=== PATIENT | male | born 1950 | race Two or more races ===

== ENCOUNTER 2017-08-21 08:25 | Day surgery (SDC) | payer OTHER ==
[2017-08-21] VITALS (12 sets, daily range): BP systolic 107–137; BP diastolic 73–98
[~2017-08-21] VITALS: Ht 172.7 cm; Wt 59.0 kg
--- NOTE | 2017-08-21 07:10 | Anethesia Preoperative Eval ---
Anesthesia Pre-op PMH/ROS General Date of Evaluation: Aug 21, 2017 Time of Evaluation: 07:10 Anesthesiologist: domitila ASA Score: ASA 3 Mallampati Score Class I : Soft palate, uvula, fauces, pillars visible Class II: Soft palate, uvula, fauces visible Class III: Soft palate, base of uvula visible Class IV: Only hard plate visible Mallampati Classification: Class II Surgeon: mica Diagnosis: gerd Surgical Procedure: egd Anesthesia History: none Social History: smoking - former smoker Family History: no anesthesia problems Allergies: Coded Allergies: No Known Allergies (Unverified , 08/20/17) Medications: see eMAR Past Medical History Cardiovascular: Reports: HTN, other - hyperlipidemia Pulmonary: Reports: asthma Gastrointestinal/Genitourinary: Reports: GERD Neurologic/Psychiatric: Reports: depression/anxiety Endocrine: Reports: DM HEENT: Reports: cataract (L), cataract (R) PSxH Narrative: cervical spine surgery, right arm surgery Anesthesia Pre-op Phys. Exam Physician Exam Last Vital Signs Date Time Temp Pulse Resp B/P (MAP) Pulse Ox O2 Delivery O2 Flow Rate FiO2 08/21/17 09:07 98.3 109 18 137/98 99 Room Air 98.3 Constitutional: NAD Neurologic: CN 2-12 intact Cardiovascular: RRR Airway Exam Mallampati Score: Class II MO: full Neck: well healed scar TMD: 2fb ROM: limited Teeth: missing Dentures: upper, lower Anesthesia Pre-op A/P Labs Accucheck 198 Risk Assessment & Plan Assessment: asa3 Plan: mac Status Change Before Surgery: No Pre-Antibiotics Drug: CLAUDIA Dueñas Aug 21, 2017 07:10
[~2017-08-21 08:25] MED LIST: Atropine Inj 1mg/10ml Syr IV PRN; DiphenhydrAMINE 50mg/ml Inj IVP PRN; LR 1000ml 1,000 ML IVLG SCH; Midazolam 2mg/2ml Inj IVP PRN; fentaNYL 100 mcg/2 mL IV PRN
[2017-08-21] MEDS ORDERED: QUETIAPINE FUM300 M1 PO (09:15)
[2017-08-21] MEDS ORDERED: GABAPENTIN300 MG ORAL (09:15)
[2017-08-21] MEDS ORDERED: METFORMIN HCL1000 M1 ORAL (09:15)
[2017-08-21] MEDS ORDERED: NORCO 7.5/3251 EA ORAL (09:15)
[2017-08-21] MEDS ORDERED: PROAIR HFA8.5 GM INH (09:15)
[2017-08-21] MEDS ORDERED: OMEPRAZOLE20 M3 ORAL (09:15)
[2017-08-21] MEDS ORDERED: GLIPIZIDE5 MG ORAL (09:15)
[2017-08-21] MEDS ORDERED: LOSARTAN POTASS50 MG ORAL (09:15)
[2017-08-21] MEDS ORDERED: AMLODIPINE BESY10 MG ORAL (09:15)
[2017-08-21] MEDS ORDERED: DULERA 100 MCG/13 GM INH (09:15)
[2017-08-21] MEDS ORDERED: CYMBALTA60 MG ORAL (09:15)
--- NOTE | 2017-08-21 10:15 | Short Stay Surgery H&P ---
History of Present Illness History of Present Illness Chief Complaint Dysphagia/GERDs abdominal pains. HPI Brian Pearl is a 66 year old male who was admitted on for GERD/dysphagia Patient History Allergies: Coded Allergies: No Known Allergies (Unverified , 08/20/17) PAST MEDICAL HISTORY: (1) Diabetes (2) Hyperlipidemia (3) Hypertension Past Surgeries: (1) H/O cervical spine surgery (2) History of surgery on arm Social History: Medication History Scheduled Albuterol Sulfate* (Proair Hfa*), 2 PUFFS INH Q6H, (Reported) Amlodipine Besylate* (Amlodipine Besylate*), 10 MG ORAL DAILY, (Reported) Duloxetine Hcl* (Cymbalta*), 60 MG ORAL BID, (Reported) Gabapentin* (Gabapentin*), 300 MG ORAL THREE TIMES A DAY, (Reported) Glipizide* (Glipizide*), 5 MG ORAL BIDAC, (Reported) Losartan Potassium* (Losartan Potassium*), 50 MG ORAL BID, (Reported) Metformin Hcl* (Metformin Hcl*), 1,000 MG ORAL BID, (Reported) Mometasone/Formoterol (Dulera 100 Mcg/5 Mcg Inhaler), 2 PUFFS INH EVERY 12 HOURS , (Reported) Omeprazole (Omeprazole), 20 MG ORAL BID, (Reported) Quetiapine Fumarate (Quetiapine Fumarate Er), 300 MG PO HS, (Reported) Scheduled PRN Hydrocodone/Acetaminophen (Hydrocodon-Acetaminoph 7.5-325), 1 TAB ORAL Q4H PRN for For Pain, (Reported) Review of Systems Cardiovascular: Reports: no symptoms Respiratory: Reports: no symptoms Skeletal: Reports: trauma Gastrointestinal: Reports: gastro esophageal reflux disease Genitourinary: Reports: no symptoms Neurologic: Reports: no symptoms Endocrine: Reports: diabetes - type 2 Hematologic: Reports: no symptoms Physical Exam Vital Signs Last Vital Signs Date Time Temp Pulse Resp B/P (MAP) Pulse Ox O2 Delivery O2 Flow Rate FiO2 08/21/17 09:07 98.3 109 18 137/98 99 Room Air 98.3 Skin: normal HENT: normal Heart: normal Lungs: normal Abdomen: abnormal Extremities: normal Genitourinary: normal Plan Plan of Care Upper GI endoscopy and biospy Preop Interventions None. Summary of Findings see the report Final Diagnosis: Attestation Are the patient's medical conditions optimized for surgery? Attestation Response: yes BRANDON ROBERSON Aug 21, 2017 10:15
--- NOTE | 2017-08-21 10:15 | Pre-Procedure Note/Attestation ---
Pre-Procedure Note/Attestation Complete Prior to Procedure Planned Procedure: left Procedure Narrative: Examination of the upper GI tract via endoscopy Indications for Procedure Pre-Operative Diagnosis: R/O Peptic Ulcer/Gastritis Attestation I attest that I discussed the nature of the procedure; its benefits; risks and complications; and alternatives (and the risks and benefits of such alternatives ), prior to the procedure, with the patient (or the patient's legal community health representative). I attest that, if there was a reasonable possibility of needing a blood transfusion, the patient (or the patient's legal community health representative) was given the [facility] standardized written summary, pursuant to the Hari Eunice Blood Safety Act ([place] Health and Safety Code # 1645, as amended). I attest that I re-evaluated the patient just prior to the surgery and that there has been no change in the patient's H&P, except as documented below: DA,SAID Aug 21, 2017 10:15
[2017-08-21] MEDS ORDERED: Propofol 200mg/20ml IV ONE (10:30)
[2017-08-21] MEDS ORDERED: Lidocaine 1% MPF 10mg/ml 5ml ONE (10:30)
[2017-08-21] MEDS ORDERED: LR 1000ml ONE (10:30)
[2017-08-21] MEDS ORDERED: Midazolam 2mg/2ml Inj ONE (10:30)
--- NOTE | 2017-08-21 10:52 | Endoscopy Procedure Note ---
Endoscopy Procedure Note General Indication for Procedure: abdominal pains and dysphagia Procedures Performed: EGD - Small Hiatal Hernia. Mild duodenitis with couple superficial erosions biopsied. biopsy bwas also done per random from gastric body. Specimen: yes Pt Tolerated Procedure Well: Yes Estimated Blood Loss: none Anesthesia Anesthesiologist: Dr. Brown Anesthesia: moderate sedation Medications Medication Given: see anesthesia record Inserted Devices Implant(s) used?: No Quality Was there any complications?: No GI Core Measures 50 yrs or older w/o bx or poly: Not Applicable 10yrs. F/U not recommended: Not Applicable If not recommended, why?: Med reason:<3 yrs.: System Reason:<3 yrs.: BRANDON ROBERSON Aug 21, 2017 10:52
--- NOTE | 2017-08-21 10:53 | Discharge Instructions ---
Discharge Instructions Discharge Instructions Follow up with: Visit the doctor in office after two weeks. For Congestive Heart Failure Reminder Report to your physician any weight gain of 5 pounds or more in one week. BRANDON ROBERSON Aug 21, 2017 10:53
--- NOTE | 2017-08-21 11:15 | Immediate Post-Op Evaluation ---
Immediate Post-Op Evalulation Immediate Post-Op Evalulation Procedure: egd Date of Evaluation: Aug 21, 2017 Time of Evaluation: 11:07 IV Fluids: 550ml lr Blood Products: none Estimated Blood Loss: negligible Blood Pressure Systolic: 107 Blood Pressure Diastolic: 73 Pulse Rate: 90 Respiratory Rate: 18 O2 Sat by Pulse Oximetry: 100 Temperature (Fahrenheit): 97.5 Pain Score (1-10): 0 Nausea: No Vomiting: No Complications none Patient Status: awake, reacts, patent Hydration Status: adequate Drug: CLAUDIA Dueñas Aug 21, 2017 11:15
--- NOTE | 2017-08-21 11:16 | 48 Hour Post Anesthesia Eval ---
Post Anesthesia Evaluation Procedure: egd Date of Evaluation: Aug 21, 2017 Time of Evaluation: 11:11 Blood Pressure Systolic: 115 0: 77 Pulse Rate: 98 Respiratory Rate: 18 Temperature (Fahrenheit): 97.5 O2 Sat by Pulse Oximetry: 100 Airway: patent Nausea: No Vomiting: No Pain Intensity: 0 Hydration Status: adequate Cardiopulmonary Status: stable Mental Status/LOC: patient returned to baseline Post-Anesthesia Complications: none Follow-up care needed: N/A CLAUDIA VIGIL Aug 21, 2017 11:16
--- NOTE | 2017-08-21 18:15 | Procedure Note ---
DATE OF PROCEDURE: 08/21/2017 PROCEDURE: Esophagogastroduodenoscopy with biopsy. SURGEON: Adalgisa Gallegos M.D. PREOPERATIVE DIAGNOSIS: Dysphagia and epigastric pain/abdominal pain, rule out peptic ulcer disease, esophagitis. POSTOPERATIVE DIAGNOSES: 1. Small hiatal hernia. 2. Mild duodenitis with minimal superficial erosions in the apex of the duodenum, biopsied. Biopsy was taken from duodenal bulb as well as gastric body. MEDICATION USED: Per Dr. Brown, anesthesiologist. INSTRUMENT: GIF Olympus upper GI video endoscope. DESCRIPTION OF PROCEDURE: The patient after arriving endoscopy unit, was told about risks and benefits of the procedure, which he accepted and signed the informed consent. At this time, he was put in the left lateral decubitus position. After adequate IV sedation, the scope was gently passed through the cricopharyngeal area, was lodged into the upper esophagus and gradually advanced towards gastroesophageal junction. The entire length of the esophagus was normal. No evidence of any pathology, stricture, ulceration, inflammatory process, etc. was found. GE junction also looked normal. There was no Melara's, however, there was evidence of a small hiatal hernia. At this point, the scope was advanced into the stomach. Gastric cavity was distended with insufflation of air. The areas of the body and the fundus and the antrum were examined in box toe maker fashion, which revealed normal findings without any evidence of pathology such as inflammatory process, ulceration, tumor, polyps etc. One random biopsy from gastric body obtained and subsequently, the scope was passed through the pylorus. First and second portion of the duodenum were found to be revealing evidence of mild inflammatory process over the anterior wall of the along with couple of superficial erosion. At this point, this area was biopsied for pathology as well and subsequently the scope was advanced into the second portion of duodenum, which revealed normal findings. At this time, the scope was pulled back into the stomach. After obtaining a biopsy from gastric body, procedure was terminated. The patient tolerated the procedure well and left the endoscopy room in good condition. Adalgisa Gallegos M.D. DR: RALF JOB#: [id number] CC:
--- NOTE | 2017-08-21 18:15 | Pre-op HX & Phy Repo 2 SIG ---
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 The applicant basically complained of pain over the upper part of the abdomen and epigastric area associated with periods of moderate to severe gastroesophageal reflux. He has been treated with omeprazole that seems to be helping him at this point. However, the patient has been experiencing pain over his abdomen. The applicant reports that he also does have difficulty swallowing consistent with dysphagia mostly for solids and liquids as well, which is intermittent in nature. He also has been experiencing excessive gas and bloating. He denies having had any evidence of GI hemorrhage such as upper or lower GI bleeding site. He reports that subsequent to his work injury, he was started on multiple medications including nonsteroidal anti-inflammatory agents such as ibuprofen that he is currently taking along with strong analgesics such as narcotics. He denies having any constipation, but does have repeated frequent bowel movement during the day. He denies having any gastrointestinal condition before being injured at job site as mentioned above. PAST MEDICAL HISTORY: Basically is nonsignificant except hyperlipidemia, diabetes, and hypertension, which is being treated adequately at this time. PAST SURGICAL HISTORY: He has had surgeries of his both arms bilaterally and also cervical surgery related to work accident. MEDICATIONS: The list of present medications are hydrocodone, gabapentin, ibuprofen, amlodipine, losartan, glipizide, metformin, duloxetine, Dulera, Pro-Air and albuterol. ALLERGIES: Nonsignificant. HABITS: The applicant does not smoke nor he drinks alcohol. REVIEW OF SYSTEMS: Basically history of present illness except some pains that he has been experiencing over his joints especially the wrist. PHYSICAL EXAMINATION: GENERAL: Physical exam at this time reveals an alert and oriented gentleman, does not seem to be in acute distress. He responds to questions adequately. VITAL SIGNS: All stable. HEENT: Normocephalic. Pupils are equal in size and reactive to light and accommodation. No visible jaundice. Buccal cavity, tongue midline, well hydrated. No ulcers. NECK: Supple. No JVD, thyromegaly, or adenopathy. CHEST: Clear to auscultation and percussion. No rales or rhonchi. HEART: S1 and S2 normal. Regular rhythm. No gallops or murmur. ABDOMEN: Soft, but there are areas of tenderness mostly over the upper part of the abdomen and epigastric area, but no masses noted. No hepatosplenomegaly. EXTREMITIES: Unremarkable. PRELIMINARY IMPRESSION: 1. Abdominal pain, epigastric pain of uncertain etiology, rule out nonsteroidal anti-inflammatory drug-induced gastropathy, peptic ulcer disease, esophagitis, and duodenitis. 2. History of dysphagia of uncertain etiology, rule out the gastroesophageal acid reflux, gastroesophageal reflux disease, rule out nonsteroidal anti-inflammatory drug-induced esophagitis, esophageal spasm, etc. 3. History of bodily injury, work related. RECOMMENDATION: The applicant at this time seems to be stable to undergo the procedure of upper GI endoscopy, for which he has been scheduled. He understands the risks and benefits and will sign the consent. Said Kareem Gallegos DR: RALF JOB#: [id number] CC:
== END 2017-08-21 12:20 | disposition home or self-care (01) ==
LOC: GAS 08:25
DX: K29.80 Duodenitis without bleeding (principal); K44.9 Diaphragmatic hernia without obstruction or gangrene; K21.9 Gastro-esophageal reflux disease without esophagitis; E78.5 Hyperlipidemia, unspecified; E11.9 Type 2 diabetes mellitus without complications; I10 Essential (primary) hypertension; Z79.84 Long term (current) use of oral hypoglycemic drugs; F32.9 Major depressive disorder, single episode, unspecified; F41.9 Anxiety disorder, unspecified; Z87.891 Personal history of nicotine dependence; K29.50 Unspecified chronic gastritis without bleeding
CPT/HCPCS: 43239; 82962; J2250; J2704; J7120; 94003; 94150